=== PATIENT | male | born 1965 | race African-American/Black ===

== ENCOUNTER → 2019-04-12 | Day surgery (SDC) | payer OTHER ==
[2019-04-11 10:47] VITALS: BMI 32.2
[~2019-04-12] MED LIST: Bupivacaine HCl 0.5%/Epinephrine 1:200,000/PF 30 ml Vial ONE; Dexamethasone 20 MG/5 ML VIAL ONE; Fentanyl 100 MCG/2 ML VIAL ONE; Glycopyrrolate 0.2 MG/ML 5 ML SYRINGE ONE; HYDROcodone/Acetaminophen 5/325 mg Tablet ONE; Ketorolac Tromethamine 30 MG/ML VIAL ONE; Lidocaine 1% PF 5 ML VIAL ONE; Midazolam HCl 2 mg/2 ml Vial ONE; Ondansetron PF 4 MG/2 ML Vial ONE; PHENYLEPHRINE-NS 100 MCG/ML 10 ML SYRINGE ONE; PROPOFOL 200 MG/20 ML VIAL ONE; Rocuronium Bromide 10 MG/ML (10ML VIAL) ONE; Succinylcholine Chloride 20 MG/ML 10 ml SYRINGE FS ONE; Tamsulosin HCl 0.4 MG CAP ONE
--- NOTE | 2019-04-12 07:06 | HP ---
HISTORY OF PRESENT ILLNESS: Mr. Freeman is a 54-year-old man presenting for second opinion on neck surgery with significant left-sided neck pain that sounds like potentially upper cervical radiculopathy. He actually has a prior ACDF that was performed in July of this year, which resulted only in mild limited relief of his symptoms. He has a new CT scan that reveals foraminal stenosis at C3-4 at the level of this construct that would fit well with these symptoms that he is experiencing. PAST MEDICAL HISTORY: Significant for hyperlipidemia, chronic pain syndrome, osteoarthritis, gastroesophageal reflux disease, and hypertension. CURRENT MEDICATIONS: 1. Percocet. 2. Methocarbamol. 3. Gabapentin. 4. Amitriptyline. 5. Losartan. 6. Atenolol. 7. Cetirizine. 8. Atorvastatin. 9. Movantik. 10. Pantoprazole. 11. Etodolac. ALLERGIES: NO KNOWN DRUG ALLERGIES. PAST SURGICAL HISTORY: ACDF. PHYSICAL EXAMINATION: NEUROLOGIC: The patient is alert and oriented x3. Gait is normal. No ataxia. Upper extremity motor exam is normal. ASSESSMENT: Cervical radiculopathy. PLAN: Dr. Tran met with the patient, reviewed imaging, and advocated for a C3-4 foraminotomy. He explained to the patient the risks, benefits, and alternatives to the procedure. The patient expressed understanding and elected to move forward with surgery as discussed. I do believe the patient is mentally competent and capable of making medical decisions for himself. We will move forward with surgery as planned. Job ID: [id number]
[2019-04-12 07:36] LABS: Mean Corpuscular HGB CONC 34.2 g/dL (32.0-36.0); Mean Corpuscular Hemoglobin 27.9 pg (27.0-31.0); Mean Corpuscular Volume 81.6 fL (78.0-98.0); Mean Platelet Volume 7.3 fL (7.4-10.4); Platelet Count 214 thou/uL (130-400); RBC Distribution Width 12.2 % (11.5-14.5); Red Blood Cell (RBC) Count 5.74 mill/uL (4.70-6.10); White Blood Cell (WBC) Count 5.8 thou/uL (4.8-10.8)
[2019-04-12 07:45] LABS: Anion Gap 12 mmol/L (10-20); BUN (Urea Nitrogen) 10 mg/dL (8.4-25.7); Calc. Creatinine Clearance 122 mL/min (70-130); Calcium 9.4 mg/dL (7.8-10.44); Carbon Dioxide 25 mmol/L (22-29); Chloride 105 mmol/L (98-107); Estimated GFR-MDRD 78; Glucose 166 mg/dL (70-105); Potassium 3.4 mmol/L (3.5-5.1); Sodium 139 mmol/L (136-145)
--- NOTE | 2019-04-12 11:06 | OP ---
DATE OF PROCEDURE: 04/12/2019 JEWELRY MODEL MAKER: Jesus Hernandez PA-C INDICATION: Cervical radiculopathy with neck pain. DIAGNOSIS: Cervical radiculopathy, bilateral. PROCEDURES PERFORMED: Bilateral C3-C4 foraminotomies, medial facetectomies. ANESTHESIA: General. DESCRIPTION OF PROCEDURE: The patient was brought into the operating room and placed under general anesthesia. He was flipped from the supine to prone position on operating room table. A linear incision was planned over the C3-C4 segment. After prepping and draping and after an appropriate perioperative pause, the incision was created. The soft tissues were swept the left of midline and right of midline. High-speed cutting drill bit as well as 1 and 2 mm Kerrisons were used to perform foraminotomy over the exiting C4 nerve roots. The decompression was extended laterally to encompass the medial aspect of the facet joint. The wound was then irrigated. Hemostasis was maintained throughout. The wound was then closed in anatomic layers and a pressure dressing was applied. There were no known procedural complications. Job ID: [id number]
== END ==
LOC: SDC 06:18
PROVIDERS: ATTEND Neurological Surgery
PROC: 01N10ZZ Release Cervical Nerve, Open Approach (ICD-10-PCS; principal; 2019-04-12)
DX: M54.12 Radiculopathy, cervical region (principal); E78.5 Hyperlipidemia, unspecified; G89.4 Chronic pain syndrome; M19.90 Unspecified osteoarthritis, unspecified site; K21.9 Gastro-esophageal reflux disease without esophagitis; I10 Essential (primary) hypertension; J43.9 Emphysema, unspecified; G47.30 Sleep apnea, unspecified; F32.9 Major depressive disorder, single episode, unspecified; F41.9 Anxiety disorder, unspecified; F20.9 Schizophrenia, unspecified; Z79.1 Long term (current) use of non-steroidal anti-inflammatories (NSAID); Z79.899 Other long term (current) drug therapy; Z98.1 Arthrodesis status; Z99.89 Dependence on other enabling machines and devices
CPT/HCPCS: 36415; 76000; 80048; 85027; 93005; 93010; J0670; J0690; J2250; J3010

== ENCOUNTER 2019-12-06 06:29 | Outpatient (CLI) | payer OTHER ==
[2019-12-06 11:59] LABS: Anion Gap 14 mmol/L (10-20); BUN (Urea Nitrogen) 12 mg/dL (8.4-25.7); Calc. Creatinine Clearance 0 mL/min (70-130); Calcium 9.8 mg/dL (7.8-10.44); Carbon Dioxide 25 mmol/L (22-29); Estimated GFR-MDRD 69; Glucose 112 mg/dL (70-105); Potassium 3.9 mmol/L (3.5-5.1); Sodium 137 mmol/L (136-145)
[2019-12-06 12:10] LABS: Chloride 102 mmol/L (98-107)
[2019-12-06 17:22] LABS: SARS-CoV-2 MS2 Positive; SARS-CoV-2 N Gene Negative; SARS-CoV-2 S Gene Negative; SARS-CoV-2 orf1ab Negative
== END 2019-12-06 06:30 | disposition home or self-care (01) ==
LOC: LABBT 06:29
PROVIDERS: ATTEND Neurological Surgery
DX: Z01.818 Encounter for other preprocedural examination (principal); Z11.59 Encounter for screening for other viral diseases; M54.12 Radiculopathy, cervical region
CPT/HCPCS: 80048; 87635; 93005; 93010; U0003

== ENCOUNTER 2019-12-09 05:55 | Day surgery (SDC) | payer OTHER ==
[2019-12-06 10:30] VITALS: BMI 31.1
--- NOTE | 2019-12-08 20:11 | HP ---
HISTORY OF PRESENT ILLNESS: Mr. Freeman is a 54-year-old man, known to us for prior posterior cervical laminectomy, who returns now with ever increasing neck pain and bilateral upper extremity pain. He reports symptoms are consistent with both at C6 and C7 pattern of radiculopathy. He brings in a CT scan of the cervical spine, that reveals foraminal stenosis from C5 to C7, that likely fit this. He hopes to treat this surgically if possible. PAST MEDICAL HISTORY: Significant for hyperlipidemia, chronic pain syndrome, osteoarthritis, gastroesophageal reflux disease, and hypertension. CURRENT MEDICATIONS: 1. Percocet. 2. Methocarbamol. 3. Gabapentin. 4. Amitriptyline. 5. Losartan. 6. Atenolol. 7. Cetirizine. 8. Atorvastatin. 9. Movantik. 10. Pantoprazole. 11. Etodolac. ALLERGIES: NO KNOWN DRUG ALLERGIES. PAST SURGICAL HISTORY: ACDF and posterior cervical laminectomy. PHYSICAL EXAMINATION: The patient is alert and oriented x3. Cervical range of motion is fairly restricted. Positive Spurling's bilaterally. ASSESSMENT: Cervical radiculopathy. PLAN: Dr. Tran met with the patient, reviewed imaging, advocated for C5-C7 ACDF. He explained the patient risks, benefits and alternatives to the procedure. The patient expressed understanding and elected to move forward with surgery as discussed. I do believe that the patient is mentally competent and capable of making medical decisions for himself. We will move forward with surgery as planned. Job ID: [id number]
[2019-12-09] MEDS ORDERED: Fentanyl 100 MCG/2 ML VIAL ONE ×5 (08:08→12:27)
[2019-12-09] MEDS ORDERED: Rocuronium Bromide 10 MG/ML (10ML VIAL) ONE (11:27)
[2019-12-09] MEDS ORDERED: Lidocaine 1% PF 5 ML VIAL ONE ×2 (11:27)
[2019-12-09] MEDS ORDERED: PROPOFOL 200 MG/20 ML VIAL ONE (11:27)
[2019-12-09] MEDS ORDERED: PHENYLEPHRINE-NS 100 MCG/ML 10 ML SYRINGE ONE (11:27)
[2019-12-09] MEDS ORDERED: Ondansetron PF 4 MG/2 ML Vial ONE (11:27)
[2019-12-09] MEDS ORDERED: Glycopyrrolate 0.2 MG/ML 5 ML SYRINGE ONE (11:27)
[2019-12-09] MEDS ORDERED: Albuterol Sulfate HFA (OR ONLY) ONE (11:27)
[2019-12-09] MEDS ORDERED: EPHEDRINE 25 MG/5 ML SYRINGE ONE (11:27)
[2019-12-09] MEDS ORDERED: HYDROcodone/Acetaminophen 5/325 mg Tablet ONE (13:23)
--- NOTE | 2019-12-09 19:02 | OP ---
DATE OF PROCEDURE: 12/09/2019 LACER AND TIER: Jesus Hernandez PA-C INDICATION: Pain. DIAGNOSIS: Cervical radiculopathy. PROCEDURES PERFORMED: Anterior cervical diskectomy and fusion C5 through C7. ANESTHESIA: General. DESCRIPTION OF PROCEDURE: The patient was brought into the operating room and placed under general anesthesia. He was placed on the table in the supine position. A transverse incision was planned over the lateral aspect of the neck on the right. After prepping and draping and after an appropriate preoperative pause, the incision was created. The underlying platysma muscle was identified and incised. A blunt tissue plane anterior to the sternocleidomastoid muscle was used to gain access to the prevertebral space. Self-retaining retractors were placed in the wound for optimal exposure. After confirming appropriate level with C-arm fluoroscopy, annulotomy was performed in the C6-C7 disk space. All disk material and osteophytes were removed until the exiting nerve roots were decompressed. With the aid of distraction pins, a 7 mm lordotic PEEK cage packed with allograft and autograft material was placed in the interbody space. We then redirected our attention level above at C5-C6, where again an annulotomy was performed. All disk material as well as anterior and posterior osteophytes were removed. After completing the decompression, a 7 mm lordotic PEEK cage packed with allograft and autograft material was placed within the interbody space. An anterior cervical plate was then fashioned to the front of spine and secured with a total of 6 screws. Midline lateral structures were inspected, found to be free from significant trauma. The wound was irrigated. Hemostasis was maintained throughout. The wound was then closed in anatomic layers and a pressure dressing was applied. There were no known procedural complications. Job ID: [id number]
== END 2019-12-09 13:47 | disposition home or self-care (01) ==
LOC: SDC 05:55
PROVIDERS: ATTEND Neurological Surgery
PROC: 0RG2070 Fusion of 2 or more Cervical Vertebral Joints with Autologous Tissue Substitute, Anterior Approach, Anterior Column, Open Approach (ICD-10-PCS; principal; 2019-12-09)
PROC: 0RT30ZZ Resection of Cervical Vertebral Disc, Open Approach (ICD-10-PCS; principal; 2019-12-09)
PROC: 0RG20A0 Fusion of 2 or more Cervical Vertebral Joints with Interbody Fusion Device, Anterior Approach, Anterior Column, Open Approach (ICD-10-PCS; principal; 2019-12-09)
DX: M54.12 Radiculopathy, cervical region (principal); M48.02 Spinal stenosis, cervical region; E78.5 Hyperlipidemia, unspecified; G89.4 Chronic pain syndrome; M19.90 Unspecified osteoarthritis, unspecified site; K21.9 Gastro-esophageal reflux disease without esophagitis; I10 Essential (primary) hypertension; Z79.899 Other long term (current) drug therapy; Z98.1 Arthrodesis status
CPT/HCPCS: 76000; C1713; C1776; J0690; J2001; J2405; J2704; J3010

== ENCOUNTER 2022-05-18 06:46 | Inpatient (IN) | payer OTHER ==
[2022-05-17 12:37] VITALS: BMI 31.1
[2022-05-18] MEDS ORDERED: fentaNYL Citrate/PF 100 MCG/2 ML SYRINGE ONE ×2 (07:10→08:47)
[2022-05-18] MEDS ORDERED: Thrombin 5000 UNITS/5 ML VIAL ONE (07:22)
[2022-05-18] MEDS ORDERED: Bupivacaine PF 0.5% 30 ML VIAL ONE (07:22)
[2022-05-18 07:43] LABS: Anion Gap 13 mmol/L (10-20); BUN (Urea Nitrogen) 7 mg/dL (8.4-25.7); Calc. Creatinine Clearance 109 mL/min (70-130); Calcium 8.6 mg/dL (7.8-10.44); Carbon Dioxide 25 mmol/L (22-29); Chloride 109 mmol/L (98-107); Estimated GFR 68; Glucose 117 mg/dL (70-105); Potassium 3.8 mmol/L (3.5-5.1); Sodium 143 mmol/L (136-145)
[2022-05-18] MEDS ORDERED: Sodium Chloride 0.9% 100 ML ONE ×2 (07:47→11:36)
[2022-05-18] MEDS ORDERED: CEFAZOLIN 2 GM VIAL ONE ×2 (07:47→11:36)
[2022-05-18] MEDS ORDERED: Rocuronium Bromide 10 MG/ML (10ML VIAL) ONE (08:06)
[2022-05-18] MEDS ORDERED: NEOSTIGMINE 3 MG/3 ML SYR 3 MG/3 ML SYRINGE ONE (08:06)
[2022-05-18] MEDS ORDERED: Dexamethasone 20 MG/5 ML VIAL ONE (08:06)
[2022-05-18] MEDS ORDERED: Glycopyrrolate 0.2 MG/ML 5 ML SYRINGE ONE (08:06)
[2022-05-18] MEDS ORDERED: PROPOFOL 200 MG/20 ML VIAL ONE (08:06)
[2022-05-18] MEDS ORDERED: FENTANYL 50 MCG/ML VIAL 50 MCG/ML VIAL ONE ×3 (09:58→10:24)
[2022-05-18] MEDS ORDERED: Tamsulosin HCl 0.4 MG CAP ONE (10:09)
[2022-05-18] MEDS ORDERED: HYDROcodone/Acetaminophen 5/325 mg Tablet ONE (10:59)
== END 2022-05-18 12:06 | disposition home or self-care (01) | DRG 473 ==
LOC: SURG A 06:46 → EDSTATUS 16:05
PROVIDERS: ADMIT Neurological Surgery; ATTEND Neurological Surgery
PROC: 0RG10A0 Fusion of Cervical Vertebral Joint with Interbody Fusion Device, Anterior Approach, Anterior Column, Open Approach (ICD-10-PCS; principal; 2022-05-18)
PROC: 0RB30ZZ Excision of Cervical Vertebral Disc, Open Approach (ICD-10-PCS; 2022-05-18)
DX: M48.02 Spinal stenosis, cervical region (principal); M54.12 Radiculopathy, cervical region; E78.5 Hyperlipidemia, unspecified; G89.29 Other chronic pain; F32.A Depression, unspecified; J44.9 Chronic obstructive pulmonary disease, unspecified; J30.2 Other seasonal allergic rhinitis; Z82.49 Family history of ischemic heart disease and other diseases of the circulatory system; Z82.3 Family history of stroke; Z83.3 Family history of diabetes mellitus; Z79.899 Other long term (current) drug therapy
CPT/HCPCS: 71045; 80048; 93005; 93010; C1713; C1889; J1100; J2704; J3490; J7620; S0020

== ENCOUNTER 2023-05-17 05:32 | Inpatient (IN) | payer OTHER ==
[2023-05-16 12:44] VITALS: BMI 29.8
[2023-05-17] MEDS ORDERED: Thrombin 5000 UNITS/5 ML VIAL ONE (06:08)
[2023-05-17] MEDS ORDERED: Ketorolac Tromethamine 30 MG/ML VIAL ONE (06:31)
[2023-05-17] MEDS ORDERED: Ondansetron PF 4 MG/2 ML Vial ONE (06:31)
[2023-05-17] MEDS ORDERED: ePHEDrine Sulfate 50 MG/10 ML VIAL ONE (06:31)
[2023-05-17] MEDS ORDERED: PROPOFOL 200 MG/20 ML VIAL ONE (06:31)
[2023-05-17] MEDS ORDERED: Rocuronium Bromide 10 MG/ML (10ML VIAL) ONE (06:31)
[2023-05-17] MEDS ORDERED: Lidocaine 1% PF 5 ML VIAL ONE (06:31)
[2023-05-17] MEDS ORDERED: fentaNYL 50 mcg/mL 1 mL Vial ONE (06:32)
[2023-05-17] MEDS ORDERED: Midazolam HCl 2 mg/2 ml Vial ONE (06:32)
[2023-05-17] MEDS ORDERED: Sodium Chloride 0.9% 100 ML ONE ×2 (06:55→11:49)
[2023-05-17] MEDS ORDERED: CEFAZOLIN 2 GM VIAL ONE ×2 (06:55→11:49)
[2023-05-17] MEDS ORDERED: Phenylephrine 10 MG/ML VIAL ONE (06:58)
[2023-05-17] MEDS ORDERED: Vasopressin 20 UNITS/ML VIAL ONE (06:58)
[2023-05-17] MEDS ORDERED: Lidocaine 2% 6 ML (Jelly) SYR ONE (07:01)
[2023-05-17 07:07] LABS: Anion Gap 13 mmol/L (10-20); BUN (Urea Nitrogen) 8 mg/dL (8.4-25.7); Calc. Creatinine Clearance 109 mL/min (70-130); Calcium 9.4 mg/dL (7.8-10.44); Carbon Dioxide 25 mmol/L (22-29); Chloride 104 mmol/L (98-107); Estimated GFR 73; Glucose 112 mg/dL (70-105); Potassium 3.5 mmol/L (3.5-5.1); Sodium 138 mmol/L (136-145)
[2023-05-17] MEDS ORDERED: SUGAMMADEX SODIUM 200 MG/2 ML VIAL ONE (09:12)
[2023-05-17] MEDS ORDERED: Tamsulosin HCl 0.4 MG CAP ONE (09:33)
[2023-05-17] MEDS ORDERED: Cyclobenzaprine 10 MG TAB ONE (09:34)
[2023-05-17] MEDS ORDERED: Fentanyl 250 MCG/5 ML VIAL ONE (09:41)
[2023-05-17] MEDS ORDERED: HYDROcodone/Acetaminophen 5/325 mg Tablet ONE (11:54)
== END 2023-05-17 12:18 | disposition home or self-care (01) | DRG 473 ==
LOC: SURG A 05:32
PROVIDERS: ADMIT Neurological Surgery; ATTEND Neurological Surgery
PROC: 0RP104Z Removal of Internal Fixation Device from Cervical Vertebral Joint, Open Approach (ICD-10-PCS; principal; 2023-05-17)
PROC: 0RG10A0 Fusion of Cervical Vertebral Joint with Interbody Fusion Device, Anterior Approach, Anterior Column, Open Approach (ICD-10-PCS; 2023-05-17)
PROC: 01N10ZZ Release Cervical Nerve, Open Approach (ICD-10-PCS; 2023-05-17)
DX: T84.296A Other mechanical complication of internal fixation device of vertebrae, initial encounter (principal); M54.2 Cervicalgia; F41.9 Anxiety disorder, unspecified; M19.90 Unspecified osteoarthritis, unspecified site; E78.5 Hyperlipidemia, unspecified; G89.29 Other chronic pain; F32.A Depression, unspecified; E11.9 Type 2 diabetes mellitus without complications; I10 Essential (primary) hypertension; Z82.49 Family history of ischemic heart disease and other diseases of the circulatory system; Z83.3 Family history of diabetes mellitus; Z82.3 Family history of stroke; F17.200 Nicotine dependence, unspecified, uncomplicated; Z79.899 Other long term (current) drug therapy; Z79.82 Long term (current) use of aspirin
CPT/HCPCS: 80048; 93005; 93010; C1713; J1885; J2250; J2370; J2405; J2704; J3010; J3490